=== PATIENT | female | born 1965 | race Caucasian/White ===

== ENCOUNTER 2018-03-08 17:32 | Emergency (ER) | payer SELFPAY ==
[~2018-03-08] VITALS: Ht 147.3 cm; Wt 40.0 kg
[2018-03-08 17:37] VITALS: BP 153/93; PULSE 75; RESP 16; TEMP 98.3; O2SAT 97
--- NOTE | 2018-03-08 17:51 | PD ---
HPI Chief Complaint: GI Complaint Time Seen by Provider: 17:47 Travel History International Travel<30 days: No Contact w/Intl Traveler<30days: No Traveled to known affect area: No History of Present Illness HPI 52-year-old female from [place], presents emergency department with 2 -1/2 days history of nausea and vomiting. Patient states she "feels dehydrated ". Patient denies significant fever. Patient has had chills, and decreased urine output. She has generalized body aches, and a itchy rash to the arms and legs. She states it did improve somewhat with Benadryl. He denies significant back pain. She has generalized abdominal discomfort. Patient has history of gallbladder surgery when she was 17 years of age. She denies any other bowel history. Patient has no cough or shortness of breath. No chest pain. Abdominal pain is rated as a 6 out of 10. It is nonspecific. Patient denies heartburn. She has no known drug allergies. PFSH Past Medical History ?: Not Social History Alcohol Use: Yes Tobacco Use: Yes Substance Use: No Allergies-Medications (Allergen,Severity, Reaction): Coded Allergies: No Known Allergies (Unverified , 03/08/18) Review of Systems Except as stated in HPI: all other systems reviewed are Neg General / Constitutional: No: Fever Eyes: No: Visual changes HENT: No: Headaches Cardiovascular: No: Chest Pain or Discomfort Respiratory: No: Shortness of Breath Gastrointestinal: No: Abdominal Pain Genitourinary: No: Dysuria Musculoskeletal: No: Pain Skin: No Rash Neurologic: No: Weakness Psychiatric: No: Depression Endocrine: No: Polydipsia Hematologic/Lymphatic: No: Easy Bruising Physical Exam Narrative GENERAL: Patient appears ill but not septic. SKIN: Warm and dry. Normal color. But poor turgor with tenting present. Patient is a dry raised erythematous rash to the inner elbows and posterior knees consistent with an eczematous type rash. There are no hives. HEAD: Atraumatic. Normocephalic. EYES: Pupils equal and round. No scleral icterus. No injection or drainage. ENT: No nasal bleeding or discharge. Mucous membranes pink and dry. Pharynx is clear. Airways patent NECK: Trachea midline. Supple and nontender CARDIOVASCULAR: Regular rate and rhythm. RESPIRATORY: No accessory muscle use. Clear to auscultation. Breath sounds equal bilaterally. GASTROINTESTINAL: Abdomen soft, moderate nonspecific tenderness, nondistended. No CVA tenderness. Hepatic and splenic margins not palpable. MUSCULOSKELETAL: Extremities without clubbing, cyanosis, or edema. No obvious deformities. NEUROLOGICAL: Awake and alert. No obvious cranial nerve deficits. Motor grossly within normal limits. Five out of 5 muscle strength in the arms and legs. Normal speech. PSYCHIATRIC: Appropriate mood and affect; insight and judgment normal. Data Data Last Documented VS Vital Signs Date Time Temp Pulse Resp B/P (MAP) Pulse Ox O2 Delivery O2 Flow Rate FiO2 03/08/18 18:38 18 03/08/18 17:56 99 Room Air 03/08/18 17:37 98.3 75 153/93 (113) Orders Orders Complete Blood Count With Diff (03/08/18 17:52) Comprehensive Metabolic Panel (03/08/18 17:52) Urinalysis - C+S If Indicated (03/08/18 17:52) Lipase (03/08/18 17:52) Abdomen, Flat & Upright (03/08/18 ) Iv Access Insert/Monitor (03/08/18 17:52) Ecg Monitoring (03/08/18 17:52) Oximetry (03/08/18 17:52) Morphine Inj (Morphine Inj) (03/08/18 18:00) Ondansetron Odt (Zofran Odt) (03/08/18 18:00) Pantoprazole Inj (Protonix Inj) (03/08/18 18:00) Sodium Chlor 0.9% 1000 Ml Inj (Ns 1000 M (03/08/18 17:52) Sodium Chloride 0.9% Flush (Ns Flush) (03/08/18 18:00) Lactic Acid (03/08/18 17:52) Magnesium (Mg) (03/08/18 17:52) Labs Laboratory Tests Test 03/08/18 18:00 White Blood Count 7.8 TH/MM3 Red Blood Count 4.77 MIL/MM3 Hemoglobin 15.1 GM/DL Hematocrit 43.5 % Mean Corpuscular Volume 91.2 FL Mean Corpuscular Hemoglobin 31.6 PG Mean Corpuscular Hemoglobin Concent 34.7 % Red Cell Distribution Width 12.6 % Platelet Count 245 TH/MM3 Mean Platelet Volume 8.4 FL Neutrophils (%) (Auto) 60.5 % Lymphocytes (%) (Auto) 30.9 % Monocytes (%) (Auto) 7.3 % Eosinophils (%) (Auto) 0.9 % Basophils (%) (Auto) 0.4 % Neutrophils # (Auto) 4.7 TH/MM3 Lymphocytes # (Auto) 2.4 TH/MM3 Monocytes # (Auto) 0.6 TH/MM3 Eosinophils # (Auto) 0.1 TH/MM3 Basophils # (Auto) 0.0 TH/MM3 CBC Comment DIFF FINAL Differential Comment Blood Urea Nitrogen 11 MG/DL Creatinine 0.76 MG/DL Random Glucose 95 MG/DL Total Protein 7.3 GM/DL Albumin 4.1 GM/DL Calcium Level 9.3 MG/DL Magnesium Level 2.2 MG/DL Alkaline Phosphatase 89 U/L Aspartate Amino Transf (AST/SGOT) 11 U/L Alanine Aminotransferase (ALT/SGPT) 18 U/L Total Bilirubin 1.3 MG/DL Sodium Level 145 MEQ/L Potassium Level 2.9 MEQ/L Chloride Level 110 MEQ/L Carbon Dioxide Level 26.2 MEQ/L Anion Gap 9 MEQ/L Estimat Glomerular Filtration Rate 80 ML/MIN Lactic Acid Level 1.2 mmol/L Lipase 89 U/L [facility] Medical Decision Making Medical Screen Exam Complete: Yes Emergency Medical Condition: Yes Differential Diagnosis Gastroenteritis. Nausea and vomiting. Dehydration. Electrolyte imbalance. Rash Narrative Course Patient appears dry but medically stable. Labs ordered including CBC, CMP, lactic acid, lipase, magnesium, and urinalysis. IV access is obtained, and the patient is given 2 mg morphine, 4 mg Zofran p.o. , 40 mg pantoprazole IV, and 1000 mL of normal saline bolus. Abdomen flat and upright is ordered. 1900 hrs., care of the patient is turned over to Shekhar Roger PA-C at change of shift. Condition: Stable Ken Bledsoe Mar 08, 2018 17:51
[2018-03-08] MEDS ORDERED: SODIUM CHLOR 0.9% 1000 ML INJ 1,000 ML IV ONE (17:52)
[2018-03-08 17:56] VITALS: O2SAT 99
[2018-03-08] MEDS ORDERED: MORPHINE SULFATE 4 MG/ML INJ IV PUSH ONE ×2 (18:00→19:45)
[2018-03-08] MEDS ORDERED: SODIUM CHLORIDE 0.9% FLUSH 10 ML FLUSH IVF PRN (18:00)
[2018-03-08] MEDS ORDERED: PANTOPRAZOLE SODIUM 40 MG VIAL IV PUSH ONE (18:00)
[2018-03-08] MEDS ORDERED: ONDANSETRON ODT 4 MG TAB PO/SL ONE (18:00)
[2018-03-08 18:19] LABS: AUTOMATED NEUTROPHIL # 4.7 TH/MM3 (1.8-7.7); BASOPHIL % 0.4 % (0.0-2.0); EOSINOPHIL # 0.1 TH/MM3 (0-0.4); EOSINOPHIL % 0.9 % (0.0-4.0); HEMATOCRIT 43.5 % (35.0-46.0); HEMOGLOBIN 15.1 GM/DL (11.6-15.3); LYMPH % 30.9 % (9.0-44.0); LYMPHOCYTE # 2.4 TH/MM3 (1.0-4.8); MEAN CELL VOLUME 91.2 FL (80.0-100.0); MEAN CORPUSCULAR HEMOGLOBIN 31.6 PG (27.0-34.0); MEAN CORPUSCULAR HGB CONC 34.7 % (32.0-36.0); MEAN PLATELET VOLUME 8.4 FL (7.0-11.0); MONO % 7.3 % (0.0-8.0); MONOCYTE # 0.6 TH/MM3 (0-0.9); NEUT % 60.5 % (16.0-70.0); PLATELET COUNT 245 TH/MM3 (150-450); RED BLOOD COUNT 4.77 MIL/MM3 (4.00-5.30); RED CELL DISTRIBUTION WIDTH 12.6 % (11.6-17.2); WHITE BLOOD COUNT 7.8 TH/MM3 (4.0-11.0)
[2018-03-08 18:50] LABS: ALBUMIN 4.1 GM/DL (3.4-5.0); ALKALINE PHOSPHATASE 89 U/L (45-117); ALT (GPT) 18 U/L (10-53); AST (GOT) 11 U/L (15-37); BICARBONATE 26.2 MEQ/L (21.0-32.0); BLOOD UREA NITROGEN 11 MG/DL (7-18); CALCIUM 9.3 MG/DL (8.5-10.1); CHLORIDE 110 MEQ/L (98-107); CREATININE 0.76 MG/DL (0.50-1.00); GLOMERULAR FILTRATION RATE 80 ML/MIN (>89); GLUCOSE,RANDOM 95 MG/DL (74-106); MAGNESIUM 2.2 MG/DL (1.5-2.5); SODIUM (NA) 145 MEQ/L (136-145); TOTAL BILIRUBIN ADULT 1.3 MG/DL (0.2-1.0); TOTAL PROTEIN 7.3 GM/DL (6.4-8.2)
[2018-03-08] MEDS ORDERED: SODIUM CHLOR 0.9% 1000 ML INJ 1,000 ML IV SCH (19:08)
--- NOTE | 2018-03-08 19:10 | RADRPT ---
EXAM DATE: 03/08/2018 7:02 PM EDT AGE/SEX: 52 years / Female INDICATIONS: Pain to stomach and abdomen, inferior to diaphragm. CLINICAL DATA: This is the patient's initial encounter. Patient reports that signs and symptoms have been present for 1 day and indicates a pain score of 9/10. MEDICAL/SURGICAL HISTORY: None. Non-responsive. COMPARISON: No prior exams available for comparison. FINDINGS: Supine and upright views of the abdomen were performed. The abdominal bowel gas pattern is normal. No air-fluid levels are seen. Cholecystectomy clips. Presumed phleboliths in the pelvis. No abnormal ma sses, calcifications, or organomegaly is seen. The visualized lower lungs are clear. No evidence of f ree intraperitoneal gas. The osseous structures are unremarkable. CONCLUSION: No acute abnormality. Status post cholecystectomy. Electronically signed by: James Adams MD 03/08/2018 7:09 PM EDT
[2018-03-08] MEDS ORDERED: POTASSIUM CHLORIDE 20 MEQ CONTROLLED RELEASE TAB PO ONE (19:15)
[2018-03-08] MEDS ORDERED: POTASSIUM CHLOR 20 MEQ PREMIX 100 ML IV ONE (19:15)
--- NOTE | 2018-03-08 19:37 | PD ---
Data Data Last Documented VS Vital Signs Date Time Temp Pulse Resp B/P (MAP) Pulse Ox O2 Delivery O2 Flow Rate FiO2 03/08/18 19:51 65 18 153/84 (107) 100 Room Air 03/08/18 17:37 98.3 Orders Orders Complete Blood Count With Diff (03/08/18 17:52) Comprehensive Metabolic Panel (03/08/18 17:52) Urinalysis - C+S If Indicated (03/08/18 17:52) Lipase (03/08/18 17:52) Abdomen, Flat & Upright (03/08/18 ) Iv Access Insert/Monitor (03/08/18 17:52) Ecg Monitoring (03/08/18 17:52) Oximetry (03/08/18 17:52) Morphine Inj (Morphine Inj) (03/08/18 18:00) Ondansetron Odt (Zofran Odt) (03/08/18 18:00) Pantoprazole Inj (Protonix Inj) (03/08/18 18:00) Sodium Chlor 0.9% 1000 Ml Inj (Ns 1000 M (03/08/18 17:52) Sodium Chloride 0.9% Flush (Ns Flush) (03/08/18 18:00) Lactic Acid (03/08/18 17:52) Magnesium (Mg) (03/08/18 17:52) Sodium Chlor 0.9% 1000 Ml Inj (Ns 1000 M (03/08/18 19:08) Potassium Chlor 20 Meq Premix (Kcl 20 Me (03/08/18 19:15) Potassium Chloride (Kcl) (03/08/18 19:15) Ct Abd/Pel W Iv Contrast(Rout) (03/08/18 19:32) Electrocardiogram (03/08/18 19:32) Troponin I (03/08/18 19:32) Creatine Kinase (Cpk) (03/08/18 19:32) Morphine Inj (Morphine Inj) (03/08/18 19:45) Pantoprazole Inj (Protonix Inj) (03/08/18 19:45) Al-Mag Hy-Si 40-40-4 Mg/Ml Liq (Mag-Al P (03/08/18 19:45) Lidocaine 2% Viscous (Xylocaine 2% Visco (03/08/18 19:45) Iohexol 350 Inj (Omnipaque 350 Inj) (03/08/18 20:45) Ed Discharge Order (03/08/18 21:05) Labs Laboratory Tests Test 03/08/18 18:00 White Blood Count 7.8 TH/MM3 Red Blood Count 4.77 MIL/MM3 Hemoglobin 15.1 GM/DL Hematocrit 43.5 % Mean Corpuscular Volume 91.2 FL Mean Corpuscular Hemoglobin 31.6 PG Mean Corpuscular Hemoglobin Concent 34.7 % Red Cell Distribution Width 12.6 % Platelet Count 245 TH/MM3 Mean Platelet Volume 8.4 FL Neutrophils (%) (Auto) 60.5 % Lymphocytes (%) (Auto) 30.9 % Monocytes (%) (Auto) 7.3 % Eosinophils (%) (Auto) 0.9 % Basophils (%) (Auto) 0.4 % Neutrophils # (Auto) 4.7 TH/MM3 Lymphocytes # (Auto) 2.4 TH/MM3 Monocytes # (Auto) 0.6 TH/MM3 Eosinophils # (Auto) 0.1 TH/MM3 Basophils # (Auto) 0.0 TH/MM3 CBC Comment DIFF FINAL Differential Comment Blood Urea Nitrogen 11 MG/DL Creatinine 0.76 MG/DL Random Glucose 95 MG/DL Total Protein 7.3 GM/DL Albumin 4.1 GM/DL Calcium Level 9.3 MG/DL Magnesium Level 2.2 MG/DL Alkaline Phosphatase 89 U/L Aspartate Amino Transf (AST/SGOT) 11 U/L Alanine Aminotransferase (ALT/SGPT) 18 U/L Total Bilirubin 1.3 MG/DL Sodium Level 145 MEQ/L Potassium Level 2.9 MEQ/L Chloride Level 110 MEQ/L Carbon Dioxide Level 26.2 MEQ/L Anion Gap 9 MEQ/L Estimat Glomerular Filtration Rate 80 ML/MIN Lactic Acid Level 1.2 mmol/L Total Creatine Kinase 95 U/L Troponin I LESS THAN 0.02 NG/ML Lipase 89 U/L [facility] Medical Record Reviewed: Yes Supervised Visit with TATO: No Narrative Course See previous providers notes for complete history of present illness. I assumed care of this patient. Briefly this is a 52-year-old female is on vacation from [place]. She is complaining of nausea, vomiting, diarrhea, intermittent epigastric pain. When I initially examined her she was having sharp epigastric pain that radiates into the back. He reports that this started sometime this afternoon. The nausea and vomiting and diarrhea started yesterday. She reports that she has had very little to eat or drink since yesterday because of the nausea and vomiting. On examination she has epigastric and left upper quadrant tenderness without guarding. History of cholecystectomy. Denies chest pain, shortness of breath, flank pain, fevers or chills. Potassium came back is 2.9. IV and oral potassium chloride administration has been ordered. Additional IV fluids have been ordered. CT abdomen and pelvis reveals CONCLUSION: 1. Status post cholecystectomy. 2. Prominent endometrium with suggestion of an isodense filling defect/mass. Nonemergent pelvic sonogram recommended. 3. No acute inflammatory process. EKG reveals sinus bradycardia with rate of 59 with no ischemic changes. CK and troponin are normal. Upon examination the patient feels significantly improved , she was given Gatorade and she was able to tolerate quite well. She was given a copy of her CT report so that she can follow-up with her primary care physician for nonemergent pelvic ultrasound. She will be discharged with Zofran. All questions answered, she is stable for discharge. Diagnosis Primary Impression: Gastroenteritis Additional Impression: Hypokalemia Additional Instruction: Slowly advance diet as tolerated. Zofran for nausea. Return for any acutely new or worsening symptoms. Med/Other Pt SpecificInfo: Prescription(s) given Scripts Ondansetron (Zofran) 4 Mg Tab 4 MG PO Q6HR Y for NAUSEA OR VOMITING, #20 TAB 0 Refills Prov: Linette Doyle DO 03/08/18 Disposition: 01 DISCHARGE HOME Condition: Stable Shekhar Roger Mar 08, 2018 19:37
[2018-03-08] MEDS ORDERED: ALUMINUM/MAGNESIUM/SIMETH 30 ML CUP PO ONE (19:45)
[2018-03-08] MEDS ORDERED: PANTOPRAZOLE SODIUM 40 MG VIAL IVP ONE (19:45)
[2018-03-08] MEDS ORDERED: LIDOCAINE VISCOUS 2% SOLN 15 ML UDC PO ONE (19:45)
[2018-03-08 19:51] VITALS: BP 153/84; PULSE 65; RESP 18; O2SAT 100
[2018-03-08 20:39] LABS: TROPONIN I LESS THAN 0.02 NG/ML (0.02-0.05)
[2018-03-08] MEDS ORDERED: IOHEXOL 350 MG/ML 10 ML VIAL (for RAD DIAG) IVCONTRAST ONE (20:45)
--- NOTE | 2018-03-08 20:46 | RADRPT ---
EXAM DATE: 03/08/2018 8:40 PM EDT AGE/SEX: 52 years / Female INDICATIONS: Abdomen pain for two days. CLINICAL DATA: This is the patient's initial encounter. Patient reports that signs and symptoms have been present for 1 day and indicates a pain score of 4/10. MEDICAL/SURGICAL HISTORY: None. None. ORAL CONTRAST: No oral contrast ingested. RADIATION DOSE: 6.64 CTDI (mGy) COMPARISON: No prior exams available for comparison. TECHNIQUE: Multiple contiguous axial images were obtained through the abdomen and pelvis following b olus infusion of 75 ml Omnipaque 350 (iohexol) nonionic water-soluble contrast as a single exam dos e. No oral contrast ingested. Using automated exposure control and adjustment of the mA and/or kV ac cording to patient size, radiation dose was kept as low as reasonably achievable to obtain optimal di agnostic quality images. DICOM format image data is available electronically for review and comparis on. FINDINGS: Lower Lungs: The visualized lower lungs are clear. Liver: The liver has a homogeneous density without space-occupying lesion. Cholecystectomy. There is mild dilation of the biliary tree. Spleen: Homogeneous density without enlargement. Pancreas: Unremarkable without mass or calcification. Kidneys: Normal in size and shape. No evidence of mass or hydronephrosis. Adrenal Glands: Unremarkable. Aorta: The aorta and proximal iliac vessels are grossly unremarkable without aneurysmal dilation. Bowel/Mesentery: The bowel loops are grossly unremarkable. The cecum and sigmoid colon have a normal configuration. Abdominal Wall: Intact. Retroperitoneum: No evidence of adenopathy in the retrocrural, para-aortic, or deep pelvic regions. Bladder: Contours are smooth. Reproductive Organs: Prominent endometrium with suggestion of isodense lesion.. Inguinal: The inguinal region is unremarkable without evidence of adenopathy. Bony Structures: Unremarkable. CONCLUSION: 1. Status post cholecystectomy. 2. Prominent endometrium with suggestion of an isodense filling defect/mass. Nonemergent pelvic sono gram recommended. 3. No acute inflammatory process. Electronically signed by: James Adams MD 03/08/2018 8:44 PM EDT
[2018-03-08] MEDS ORDERED: ZOFR4TAB PO (21:06)
--- NOTE | 2018-03-09 17:44 | EKG ---
Date Performed: 03/08/2018 Time Performed: 19:45:24 PTAGE: 52 years EKG: SINUS BRADYCARDIA BORDERLINE ECG NO PREVIOUS TRACING DOCTOR: Kayleigh Green Interpretating Date/Time 03/09/2018 17:42:02
== END 2018-03-08 21:47 | disposition home or self-care (01) ==
LOC: NEPD 17:32
DX: K52.9 Noninfective gastroenteritis and colitis, unspecified (principal); E87.6 Hypokalemia; R21 Rash and other nonspecific skin eruption; R94.31 Abnormal electrocardiogram [ECG] [EKG]; Z72.0 Tobacco use
CPT/HCPCS: 74019; 74177; 80053; 82550; 83605; 83690; 83735; 84484; 85025; 93005; 96361; 96374; 96375; 99285; C9113; J2270; J3480; J7030; Q9967